=== PATIENT | female | born 1985 | race African-American/Black ===

== ENCOUNTER 2020-03-26 00:15 | Inpatient (IN) ==
[2020-03-26] MEDS ORDERED: hydrALAZINE 20 MG/1 ML VIAL IV STA (00:39)
[2020-03-26 00:55] LABS: Basophils % 0.6 % (0.0-0.8); Eosinophils # 0.1 10*3/uL (0.0-0.87); Eosinophils % 1.6 % (0.00-10.9); Hematocrit 36.2 VOL% (35.7-47.0); Hemoglobin 11.6 GM/DL (12.0-16.0); Immature Granulocytes % 0.3 %; Immature Granulocytes Absolute 0.02 #; Lymphocytes # 2.5 10*3/uL (1.4-4.0); Lymphocytes % 39.1 % (21.3-54.2); Mean Corpuscular Volume 81.5 FL (87-102); Mean Platelet Volume 9.9 FL (9.6-12.0); Neutrophils % 49.4 % (38.7-73.9); Platelet Count 372 T/CUMM (130-400); Red Blood Count 4.44 MC/CUMM (3.8-5.5); Red Cell Distribution Width 16.2 % (9.3-17.3); White Blood Count 6.3 T/CUMM (4-12)
[2020-03-26 01:01] LABS: Apearance,Urine CLEAR (Clear); Bacteria,Urine Occasional /HPF (Few); Bilirubin,Urine Negative (Negative); Blood, Urine Small mg/dL (Negative); Glucose,Urine (UA) Negative (Negative); Hyaline Casts,Urine 1 /LPF (0-3); Ketones,Urine Negative (Negative); Mucus,Urine Occasional /LPF (Occasional); Nitrite,Urine Negative (Negative); Protein,Urine Negative; RBC,Urine 7 /HPF (0-4); Squamous Epithelial Cell,Urine Occasional /HPF (0-10); Urine Color Yellow (Yellow); Urine Specific Gravity 1.015 (1.001-1.035); Urine Urobilinogen < 2.0 EU/DL (0.2-1.0); WBC,Urine 8 /HPF (0-6)
[2020-03-26 01:08] LABS: PT Patient Result 10.3 SECS (9.8-11.9); Partial Thromboplastin Time 29.6 SECS (23.9-33.8)
[2020-03-26 01:11] LABS: Alanine Aminotransferase 15 U/L (13-56); Albumin 3.6 G/DL (3.4-5.0); Alkaline Phosphatase 87 U/L (45-117); Aspartate Amino Transferase 19 U/L (0-37); Bilirubin,Total < 0.39 MG/DL (0.2-1.0); Blood Urea Nitrogen 10 MG/DL (7-18); Calcium 8.8 MG/DL (8.5-10.1); Estimated Glom Filtration Rate 104 ML/MIN; Ferritin 5.7 ng/ml (8-252); Glucose 111 MG/DL (74-106); Osmolality,Calculated 274.7 MOS/KG (273-304); Total Protein 8.4 G/DL (6.4-8.3); Troponin I < 0.015 NG/ML (0.00-0.045)
[2020-03-26] MEDS ORDERED: METOPROLOL TARTRATE 5 MG/5 ML VIAL IV ONE (01:27)
[2020-03-26] MEDS ORDERED: ACETAMINOPHEN 325 MG TABLET PO PRN (01:27)
[2020-03-26] MEDS ORDERED: hydrALAZINE 20 MG/1 ML VIAL IV PRN (01:27)
[2020-03-26] MEDS ORDERED: DEXTROSE 50% 25 GM/50 ML VIAL IV PRN (01:27)
[2020-03-26] MEDS ORDERED: GLUCAGON 1 MG VIAL IM PRN (01:27)
[2020-03-26] MEDS ORDERED: NICOTINE 21 MG/24 HR PATCH TRANSDERM PRN (01:27)
[2020-03-26] MEDS ORDERED: ONDANSETRON 4 MG/2 ML VIAL IV PRN (01:27)
[2020-03-26] MEDS ORDERED: METOPROLOL TARTRATE 5 MG/5 ML VIAL IV STA (01:30)
[2020-03-26 01:54] LABS: Risk Ratio 4.88; VLDL CHOLESTEROL 18.2 MG/DL
[2020-03-26] MEDS: cefTRIAXone 1,000 MG in SYRINGE 1 EACH IV SCH (01:59)
[2020-03-26 02:14] LABS: Barbiturates Screen,Urine Positive (Negative); Benzodiazepines Screen,Urine Negative (Negative); Cannabinoid Screen,Urine Negative (Negative); Opiate Screen,Urine Negative (Negative); Phencyclidine Screen,Urine Negative (Negative)
[2020-03-26] MEDS ORDERED: SODIUM CHLORIDE 0.9% 500 ML IV STA (02:59)
[2020-03-26] MEDS: LOSARTAN 50 MG TABLET PO SCH (09:34)
[2020-03-26] MEDS: hydroCHLOROthiazide 12.5 MG CAPSULE PO SCH (09:34)
[2020-03-26] MEDS: BUTALBITAL/ACETAMIN/CAFFEINE 50-325-40 MG TABLET PO PRN ×2 (09:54→20:02)
[2020-03-26] MEDS: ASPIRIN 325 MG TABLET PO SCH (09:54)
[2020-03-26] MEDS: ENOXAPARIN 40 MG/0.4 ML SYRINGE SUBCUT SCH ×2 (13:50→23:30)
[2020-03-26] MEDS: ATORVASTATIN 40 MG TABLET PO SCH (20:38)
[2020-03-27] MEDS: BUTALBITAL/ACETAMIN/CAFFEINE 50-325-40 MG TABLET PO PRN ×3 (00:56→20:31)
[2020-03-27] MEDS: cefTRIAXone 1,000 MG in SYRINGE 1 EACH IV SCH (01:14)
[2020-03-27] MEDS: ASPIRIN 325 MG TABLET PO SCH (10:54)
[2020-03-27 10:55] LABS: Basophils % 0.7 % (0.0-0.8); Eosinophils % 0.9 % (0.00-10.9); Hematocrit 32.9 VOL% (35.7-47.0); Hemoglobin 10.3 GM/DL (12.0-16.0); Immature Granulocytes % 0.2 %; Immature Granulocytes Absolute 0.01 #; Lymphocytes # 2.4 10*3/uL (1.4-4.0); Lymphocytes % 51.9 % (21.3-54.2); Mean Corpuscular HGB Conc 31.3 GM/DL (32-36); Mean Corpuscular Volume 82.3 FL (87-102); Mean Platelet Volume 9.8 FL (9.6-12.0); Monocytes % 9.5 % (1.7-12.7); Neutrophils % 36.8 % (38.7-73.9); Platelet Count 333 T/CUMM (130-400); Red Cell Distribution Width 16.2 % (9.3-17.3); White Blood Count 4.5 T/CUMM (4-12)
[2020-03-27 11:12] LABS: Eosinophils 1 % (0-10); Lymphocytes 53 % (20-55); Segmented Neutrophils 40 % (50-85); Total Cells Counted 100
[2020-03-27 11:13] LABS: Hypochromasia 1+; Microcytosis Slight; Platelet Estimate Adequate
[2020-03-27 11:21] LABS: Calcium 8.5 MG/DL (8.5-10.1); Osmolality,Calculated 276.4 MOS/KG (273-304)
[2020-03-27] MEDS: ENOXAPARIN 40 MG/0.4 ML SYRINGE SUBCUT SCH ×2 (12:00→23:10)
[2020-03-27] MEDS ORDERED: BISACODYL 5 MG TABLET PO ONE (13:07)
[2020-03-27] MEDS: ATORVASTATIN 40 MG TABLET PO SCH (20:31)
[2020-03-28] MEDS: cefTRIAXone 1,000 MG in SYRINGE 1 EACH IV SCH (02:25)
[2020-03-28] MEDS: hydroCHLOROthiazide 12.5 MG CAPSULE PO SCH (08:41)
[2020-03-28] MEDS: BUTALBITAL/ACETAMIN/CAFFEINE 50-325-40 MG TABLET PO PRN (08:41)
[2020-03-28] MEDS: ASPIRIN 325 MG TABLET PO SCH (08:41)
[2020-03-28] MEDS: LOSARTAN 50 MG TABLET PO SCH (08:42)
[2020-03-28] MEDS ORDERED: POTASSIUM CHLORIDE 20 MEQ TABLET PO ONE (08:55)
[2020-03-28] MEDS ORDERED: amLODIPine 10 MG TABLET PO SCH (09:00)
[2020-03-28 11:53] VITALS: BP 160/110
[2020-03-28] MEDS: ENOXAPARIN 40 MG/0.4 ML SYRINGE SUBCUT SCH (12:42)
== END 2020-03-28 13:05 | disposition home health service (06) | DRG 79 ==
LOC: N.EDINP 00:15 → N.ED 00:15 → SUATTDRO 01:27 → N.EDINP 03:43 → N.TELES 04:01 → SUATTDRO 03-27 07:36
PROVIDERS: ADMIT Internal Medicine; ATTEND Internal Medicine